=== PATIENT | male | born 1960 | race Caucasian/White ===

== ENCOUNTER → 2017-01-14 | Outpatient (CLI) | payer OTHER ==
--- NOTE | 2017-01-14 11:12 | RAD ---
Indication neck pain. Limited range of motion. AP and lateral views of the cervical spine were obtained. C1-T2 are identified. There are degenerative changes in the cervical spine. This is most pronounced at C6-7 where there is disc space narrowing and osteophyte formation. Vertebral height is relatively well maintained. Acute finding is not seen. The prevertebral soft tissues appear normal. IMPRESSION: Degenerative changes in the cervical spine predominantly centered at C6-7
== END | disposition home or self-care (01) ==
LOC: RAD 09:14
PROVIDERS: ATTEND Family Medicine
DX: M47.892 Other spondylosis, cervical region (principal)
CPT/HCPCS: 72040